=== PATIENT | male | born 1965 | race Caucasian/White ===

== ENCOUNTER 2024-10-11 15:34 | Emergency (ER) | payer BC ==
[2024-10-11] MEDS ORDERED: Naloxone 0.4 MG/ML SDV IVPUSH PRN ×2 (16:21→18:48)
[2024-10-11] MEDS ORDERED: HYDROmorphone 0.5 MG/0.5 ML Syringe IVPUSH ONE (16:21)
[2024-10-11] MEDS: Ketorolac 30 MG/ML SDV IVPUSH ONE (17:37)
[2024-10-11] MEDS: HYDROmorphone 0.5 MG/0.5 ML Syringe IVPUSH ONE (19:09)
== END 2024-10-11 19:47 | disposition home or self-care (01) ==
LOC: JD.ED 15:34
DX: M54.41 Lumbago with sciatica, right side (principal); F17.210 Nicotine dependence, cigarettes, uncomplicated; Z88.0 Allergy status to penicillin; Z88.5 Allergy status to narcotic agent; W18.2XXA Fall in (into) shower or empty bathtub, initial encounter
CPT/HCPCS: 72131; 72192; 73552; 73562; 73590; 73610; 73630; 96374; 96375; 99284; J1885; 99283